=== PATIENT | female | born 1970 | race Caucasian/White ===

== ENCOUNTER 2017-07-28 17:13 | Emergency (ER) | payer MEDICAID ==
[2017-07-28] MEDS ORDERED: Sodium Chloride 0.9% 2.5 ML Syringe FLUSH PRN (17:57)
[2017-07-28] MEDS ORDERED: Sodium Chloride 0.9% 10 ML Syringe FLUSH PRN (17:57)
--- NOTE | 2017-07-28 18:01 | EDM.PDOC ---
ED HPI GENERAL MEDICAL PROBLEM - General Chief Complaint: Cardiovascular Problem Stated Complaint: PT HAVING FATIGUE Time Seen by Provider: 07/28/17 17:59 Source of Information: Reports: Patient History Limitations: Reports: No Limitations - History of Present Illness INITIAL COMMENTS - FREE TEXT/NARRATIVE: HISTORY AND PHYSICAL: []47-year-old female presenting with concerns over significant fatigue History of Present Illness: []Patient has a cardiac history spoke with her nurse in [facility] and was encouraged to present to the emergency room Patient is requesting at least her thyroid to be checked Review of Systems: As per history of present illness and below otherwise all systems reviewed and negative. Past medical history: As per history of present illness and as reviewed below otherwise noncontributory. Surgical history: As per history of present illness and as reviewed below otherwise noncontributory. Social history: No reported history of drug or alcohol abuse. Family history: As per history of present illness and as reviewed below otherwise noncontributory. Physical exam: Alert and oriented female who looks somewhat tired. She answers questions appropriately in full sentences without any shortness of breath HEENT: Atraumatic, normocehpalic, pupils reactive, negative for conjunctival pallor or scleral icterus, mucous membranes moist, throat clear, neck supple, nontender, trachea midline. Lungs: Clear to auscultation, breath sounds equal bilaterally, chest non tender. Heart: S1S2, regular, negative for clicks, rubs, or JVD. Abdomen: Soft, nondistended, nontender. Negative for masses or hepatossplenmegaly. Negative for costovertebral tenderness. Pelvis: Stable nontender. Genitourinary: Deferred. Rectal: Deferred Extremities: Atraumatic, negative for cords or calf pain. Neurovascular unremarkable. Neuro: Awake, alert, oriented. Cranial nerves II through XII unremarkable. Cerebellum unremarkable. Motor and sensory unremarkable throughout. Exam nonfocal. Discussed with the patient and her family that no abnormalities really are arising on the laboratory values this examination or chest x-ray Diagnostics: [CBC CMP U/A chest x-ray TSH] Therapeutics: [] Impression: [Fatigue] Plan: [Discharged to home Follow up with your primary care provider next week] Definitive disposition and diagnosis as appropriate pending reevaluation and review of above. Onset: Gradual (2 weeks) Duration: Week(s): (2) Location: Reports: Generalized Severity: Mild - Related Data Allergies Allergy/AdvReac Type Severity Reaction Status Date / Time gabapentin Allergy Rash Verified 07/28/17 17:30 latex Allergy Rash Verified 07/28/17 17:29 Penicillins Allergy Rash Verified 07/28/17 17:29 Home Meds: Home Meds Acyclovir 400 mg PO DAILY 07/28/17 [History] Albuterol [Proventil Neb Soln] 1 puff INH Q4HR PRN 07/28/17 [History] Aspirin 81 mg PO DAILY 07/28/17 [History] Carvedilol Phosphate [Coreg Cr] 20 mg PO DAILY 07/28/17 [History] Isosorbide Mononitrate [Imdur] 60 mg PO DAILY 07/28/17 [History] Pramipexole [Mirapex] 0.125 mg PO DAILY 07/28/17 [History] atorvaSTATin Calcium [Atorvastatin Calcium] 80 mg PO DAILY 07/28/17 [History] Past Medical History Cardiovascular History: Reports: [place] Respiratory History: Reports: Asthma, COPD - Past Surgical History Cardiovascular Surgical History: Reports: Coronary Artery Stent Social & Family History - Family History Family Medical History: Noncontributory - Tobacco Use Smoking Status *Q: Current Every Day Smoker Years of Tobacco use: 30 Packs/Tins Daily: 0.3 - Caffeine Use Caffeine Use: Reports: Coffee, Tea - Recreational Drug Use Recreational Drug Use: No ED ROS GENERAL - Review of Systems Review Of Systems: ROS reveals no pertinent complaints other than HPI. ED EXAM, GENERAL - Physical Exam Exam: See Below (See dictation) EKG INTERPRETATION EKG Date: 07/28/17 Rhythm: NSR Course - Vital Signs Last Recorded V/S: Last Vital Signs Temp 36.1 C 07/28/17 17:30 Pulse 69 07/28/17 17:30 Resp 18 07/28/17 17:30 BP 125/88 07/28/17 17:30 Pulse Ox 96 07/28/17 17:30 - Orders/Labs/Meds Orders: Active Orders 24 hr Category Date Time Status Chest 2V [CR] Stat Exams 07/28/17 17:58 Taken Sodium Chloride 0.9% [Saline Flush] Med 07/28/17 17:57 Active 10 ml FLUSH ASDIRECTED PRN Sodium Chloride 0.9% [Saline Flush] Med 07/28/17 17:57 Active 2.5 ml FLUSH ASDIRECTED PRN Saline Lock Insert [OM.PC] Stat Oth 07/28/17 17:57 Ordered Medication Orders Sodium Chloride (Saline Flush) 10 ml FLUSH ASDIRECTED PRN PRN Reason: Keep Vein Open Sodium Chloride (Saline Flush) 2.5 ml FLUSH ASDIRECTED PRN PRN Reason: Keep Vein Open Labs: Laboratory Tests 07/28/17 07/28/17 07/28/17 Range/Units 18:10 18:10 18:58 WBC 10.37 (4.0-11.0) K/uL RBC 4.48 (4.30-5.90) M/uL Hgb 14.9 (12.0-16.0) g/dL Hct 44.1 (36.0-46.0) % MCV 98.4 H (80.0-98.0) fL MCH 33.3 H (27.0-32.0) pg MCHC 33.8 (31.0-37.0) g/dL RDW Std Deviation 47.4 (28.0-62.0) fl RDW Coeff of Graciela 13 (11.0-15.0) % Plt Count 274 (150-400) K/uL MPV 9.70 (7.40-12.00) fL Neut % (Auto) 58.5 (48.0-80.0) % Lymph % (Auto) 28.5 (16.0-40.0) % Whitley % (Auto) 10.1 (0.0-15.0) % Eos % (Auto) 2.7 (0.0-7.0) % Baso % (Auto) 0.2 (0.0-1.5) % Neut # (Auto) 6.1 H (1.4-5.7) K/uL Lymph # (Auto) 3.0 H (0.6-2.4) K/uL Whitley # (Auto) 1.1 H (0.0-0.8) K/uL Eos # (Auto) 0.3 (0.0-0.7) K/uL Baso # (Auto) 0.0 (0.0-0.1) K/uL Nucleated RBC % 0.0 /100WBC Nucleated RBCs # 0 K/uL Sodium 139 (136-146) mmol/L Potassium 4.3 (3.5-5.1) mmol/L Chloride 107 (98-110) mmol/L Carbon Dioxide 22 (21-31) mmol/L BUN 14 (6.0-23.0) mg/dL Creatinine 0.9 (0.6-1.5) mg/dL Est Cr Clr Drug Dosing TNP Estimated GFR (MDRD) > 60.0 ml/min Glucose 96 (60-110) mg/dL Calcium 9.4 (8.8-10.8) mg/dL Total Bilirubin 0.3 (0.1-1.5) mg/dL AST 24 (5-40) IU/L ALT 30 (8-54) IU/L Alkaline Phosphatase 79 (40-150) Troponin I < 0.10 (0.0-0.29) NG/ML Total Protein 6.9 (6.0-8.0) g/dL Albumin 4.0 (3.5-5.0) g/dL Globulin 2.9 (2.0-3.5) g/dL Albumin/Globulin Ratio 1.4 (1.3-2.8) TSH 3rd Generation 3.26 (0.47-5.0) uIU/mL Urine Color DARK YELLOW Urine Appearance SLT CLOUDY Urine pH 5.0 (5.0-8.0) Ur Specific Holt >= 1.030 (1.001-1.035) Urine Protein NEGATIVE (NEGATIVE) mg/dL Urine Glucose (UA) NEGATIVE (NEGATIVE) mg/dL Urine Ketones NEGATIVE (NEGATIVE) mg/dL Urine Occult Blood NEGATIVE (NEGATIVE) Urine Nitrite NEGATIVE (NEGATIVE) Urine Bilirubin NEGATIVE (NEGATIVE) Urine Urobilinogen 0.2 (<2.0) EU/dL Ur Leukocyte Esterase NEGATIVE (NEGATIVE) Urine RBC 0-1 (0-2/HPF) Urine WBC 0-1 (0-5/HPF) Ur Epithelial Cells OCCASIONAL (NONE-FEW) Urine Bacteria FEW (NEGATIVE) Urine Mucus MODERATE (NONE-MOD) Urine HCG, Qual (NEGATIVE) 07/28/17 Range/Units 18:58 WBC (4.0-11.0) K/uL RBC (4.30-5.90) M/uL Hgb (12.0-16.0) g/dL Hct (36.0-46.0) % MCV (80.0-98.0) fL MCH (27.0-32.0) pg MCHC (31.0-37.0) g/dL RDW Std Deviation (28.0-62.0) fl RDW Coeff of Gracilea (11.0-15.0) % Plt Count (150-400) K/uL MPV (7.40-12.00) fL Neut % (Auto) (48.0-80.0) % Lymph % (Auto) (16.0-40.0) % Whitley % (Auto) (0.0-15.0) % Eos % (Auto) (0.0-7.0) % Baso % (Auto) (0.0-1.5) % Neut # (Auto) (1.4-5.7) K/uL Lymph # (Auto) (0.6-2.4) K/uL Whitley # (Auto) (0.0-0.8) K/uL Eos # (Auto) (0.0-0.7) K/uL Baso # (Auto) (0.0-0.1) K/uL Nucleated RBC % /100WBC Nucleated RBCs # K/uL Sodium (136-146) mmol/L Potassium (3.5-5.1) mmol/L Chloride (98-110) mmol/L Carbon Dioxide (21-31) mmol/L BUN (6.0-23.0) mg/dL Creatinine (0.6-1.5) mg/dL Est Cr Clr Drug Dosing Estimated GFR (MDRD) ml/min Glucose (60-110) mg/dL Calcium (8.8-10.8) mg/dL Total Bilirubin (0.1-1.5) mg/dL AST (5-40) IU/L ALT (8-54) IU/L Alkaline Phosphatase (40-150) Troponin I (0.0-0.29) NG/ML Total Protein (6.0-8.0) g/dL Albumin (3.5-5.0) g/dL Globulin (2.0-3.5) g/dL Albumin/Globulin Ratio (1.3-2.8) TSH 3rd Generation (0.47-5.0) uIU/mL Urine Color Urine Appearance Urine pH (5.0-8.0) Ur Specific Holt (1.001-1.035) Urine Protein (NEGATIVE) mg/dL Urine Glucose (UA) (NEGATIVE) mg/dL Urine Ketones (NEGATIVE) mg/dL Urine Occult Blood (NEGATIVE) Urine Nitrite (NEGATIVE) Urine Bilirubin (NEGATIVE) Urine Urobilinogen (<2.0) EU/dL Ur Leukocyte Esterase (NEGATIVE) Urine RBC (0-2/HPF) Urine WBC (0-5/HPF) Ur Epithelial Cells (NONE-FEW) Urine Bacteria (NEGATIVE) Urine Mucus (NONE-MOD) Urine HCG, Qual NEGATIVE (NEGATIVE) Meds: Medications Generic Name Dose Route Start Last Admin Trade Name Freq PRN Reason Stop Dose Admin Sodium Chloride 10 ml 07/28/17 17:57 Saline Flush FLUSH ASDIRECTED PRN Keep Vein Open Sodium Chloride 2.5 ml 07/28/17 17:57 Saline Flush FLUSH ASDIRECTED PRN Keep Vein Open Departure - Departure Time of Disposition: 19:56 Disposition: Home, Self-Care 01 Condition: Good Clinical Impression: Fatigue Qualifiers: Fatigue type: unspecified Qualified Code(s): R53.83 - Other fatigue Forms: ED Department Discharge Additional Instructions: The following information is given to patients seen in the emergency department who are being discharged to home. This information is to outline your options for follow-up care. We provide all patients seen in our emergency department with a follow-up referral. The need for follow-up, as well as the timing and circumstances, are variable depending upon the specifics of your emergency department visit. If you don't have a primary care physician on staff, we will provide you with a referral. We always advise you to contact your personal physician following an emergency department visit to inform them of the circumstance of the visit and for follow-up with them and/or the need for any referrals to a consulting specialist. The emergency department will also refer you to a specialist when appropriate. This referral assures that you have the opportunity for followup care with a specialist. All of these measure are taken in an effort to provide you with optimal care, which includes your followup. Under all circumstances we always encourage you to contact your private physician who remains a resource for coordinating your care. When calling for followup care, please make the office aware that this follow-up is from your recent emergency room visit. If for any reason you are refused follow-up, please contact the [facility] emergency department at and asked to speak to the emergency department charge nurse. Follow-up with your primary care provider no worrisome findings were noted today on examination or with labs and chest x-ray - My Orders Last 24 Hours: My Active Orders 07/28/17 17:57 Sodium Chloride 0.9% [Saline Flush] 10 ml FLUSH ASDIRECTED PRN Sodium Chloride 0.9% [Saline Flush] 2.5 ml FLUSH ASDIRECTED PRN Saline Lock Insert [OM.PC] Stat 07/28/17 17:58 Chest 2V [CR] Stat - Assessment/Plan Last 24 Hours: My Active Orders 07/28/17 17:57 Sodium Chloride 0.9% [Saline Flush] 10 ml FLUSH ASDIRECTED PRN Sodium Chloride 0.9% [Saline Flush] 2.5 ml FLUSH ASDIRECTED PRN Saline Lock Insert [OM.PC] Stat 07/28/17 17:58 Chest 2V [CR] Stat
[2017-07-28 18:49] LABS: CHLORIDE,CL 107 mmol/L (98-110); SODIUM,NA 139 mmol/L (136-146)
--- NOTE | 2017-07-30 06:07 | CR ---
EXAM DATE: 07/28/17 PATIENT'S AGE: 47 Patient: SAV CIFUENTES Facility: [place], [place] Site . Site : [id number] Study: XRay Chest [id number] 6:33:46 PM Ordering Physician: Doctor El Final Report: INDICATION: Palpitations, fatigue, shortness of breath TECHNIQUE: Chest radiograph 2 views COMPARISON: None FINDINGS: Mediastinum: The heart silhouette is normal in size and morphology. Lungs: There is mild herniation of the right lung apex noted into the base of the neck. Both lungs are otherwise clear. No sign of pleural effusion seen. No pneumothorax is identified. Bones: Unremarkable for age. IMPRESSION: 1. There is mild herniation of the right lung apex noted into the base of the neck. Both lungs are otherwise clear. Dictated by Devin Boyd MD @ 07/28/2017 6:48:25 PM Dictated by: Devin Boyd MD @ 07/28/2017 18:48:44 (Electronic Signature) Report Signed by Proxy. VIK
== END 2017-07-28 20:08 | disposition home or self-care (01) ==
LOC: MW.ED 17:13
DX: R53.83 Other fatigue (principal); J44.9 Chronic obstructive pulmonary disease, unspecified; F17.210 Nicotine dependence, cigarettes, uncomplicated; Z79.82 Long term (current) use of aspirin; Z79.899 Other long term (current) drug therapy; Z88.0 Allergy status to penicillin; Z88.8 Allergy status to other drugs, medicaments and biological substances; Z91.040 Latex allergy status
CPT/HCPCS: 36415; 71020; 71020-26; 80053; 81001; 81025; 84443; 84484; 85025; 93005; 99283; 99285